=== PATIENT | male | born 1955 | race Caucasian/White ===

== ENCOUNTER 2020-07-09 07:59 | Day surgery (SDC) | payer MEDICARE, MEDICAID, SELFPAY ==
[2020-07-09 08:31] VITALS: BP 152/89; PULSE 63; RESP 18; TEMP 36.2; O2SAT 95
[2020-07-09] MEDS: Tropicam./Phenyleph. (1/2.5%) 5 ML BTL OD ×3 (08:38→08:48)
[2020-07-09] MEDS: Tetracaine 0.5% 4 ML BTL OD (09:42)
[2020-07-09] MEDS: Lidocaine 1% Pres-Free 5 ML VIAL (09:44)
[2020-07-09] MEDS: Balanced Salt Soln.-PLUS 500 ML BAG (09:44)
[2020-07-09] MEDS: Lidocaine 2% Jelly 6 ML SYR (09:45)
[2020-07-09] MEDS: Povidone-Iodine Ophth 30 ML BTL (09:46)
[2020-07-09] MEDS: Duovisc Viscoelastic System EACH 1 EACH (09:47)
--- NOTE | 2020-07-09 10:19 | W.PM.DSUDISC ---
Discharge Plan Disposition Patient Disposition: HOME Condition: Good Discharge Details Attending Provider: Gonzalo Ceballos Primary Care Provider: Bro Madrigal [place] Meds and New Rx's Prescriptions: No Action latanoprost 0.005 % drops 1 drp ophthalmic (eye) DAILY RF: 0 labetalol 200 mg tablet 400 mg PO TID RF: 0 chlorthalidone 25 mg tablet 25 mg PO BID RF: 0 allopurinol 100 mg tablet 200 mg PO DAILY RF: 0 aspirin 81 mg Tablet,Delayed Release (Dr/Ec) 81 mg PO DAILY RF: 0 clonidine HCl 0.2 mg tablet 0.2 mg PO DIRECTED RF: 0 diltiazem HCl [DILT-XR] 120 mg capsule,ext.rel 24h degradable 120 mg PO DAILY RF: 0 benazepril 40 mg tablet 40 mg PO DAILY RF: 0 tacrolimus 1 mg capsule 2 mg PO BID RF: 0 mycophenolate sodium 180 mg tablet,delayed release (DR/EC) 540 mg PO BID RF: 0 cholecalciferol (vitamin D3) 25 mcg (1,000 unit) tablet 1,000 unit PO DAILY RF: 0 Lantus Solostar U-100 Insulin 100 unit/mL (3 mL) insulin pen 90 unit SUBCUT HS RF: 0 Simbrinza 1-0.2 % drops,suspension 2 drp ophthalmic (eye) DAILY RF: 0 Gvoke HypoPen 1-Pack 1 mg/0.2 mL Auto-Injector 1 mg SUBCUT PRN PRNRF: 0 insulin aspart U-100 [Novolog Flexpen U-100 Insulin] 100 unit/mL (3 mL) insulin pen 32 unit SUBCUT BID RF: 0 Discharge Instructions Stand Alone Forms: Post-op Topical Cataract, Press Ganey (DSU) Discharge Orders Discharge Orders: Discharge Order (Routine); Ordered 07/09/20 Ordered By: Gonzalo Ceballos DS: Diagnosis Discharge Diagnosis (1) Primary open-angle glaucoma, right eye, moderate stage: Status: Chronic (2) Nuclear sclerotic cataract of right eye: Status: Chronic
--- NOTE | 2020-07-09 10:20 | ROE_ITS ---
Date of service: 07/09/20 Time of Service: 10:20 Operative Note Operative Note DATE OF PROCEDURE: 07/09/20 PRE-OP DIAGNOSIS: Nuclear cataract, right eye; Primary open-angle glaucoma, right eye, moderate stage POST-OP DIAGNOSIS: same PROCEDURE: Cataract extraction using phacoemulsification with intraocular lens implant, right eye SURGEON: Gonzalo Ceballos ANESTHESIA: MAC and local (sub-tenon's anesthetic infiltration) ESTIMATED BLOOD LOSS: 0 PATHOLOGY: none sent COMPLICATIONS: None Patient was transported to: same day Patient's condition: stable Implants: [employer] Vision / [employer] Tecnis ZCB00 intraocular lens Indications: Progressive decreased vision due to cataract, right eye Procedure Description: CATARACT SURGERY OPERATIVE REPORT PREOPERATIVE DIAGNOSIS: Nuclear cataract, right eye Primary open-angle glaucoma, right eye, moderate stage POSTOPERATIVE DIAGNOSIS: Same OPERATION: Cataract extraction using phacoemulsification with posterior chamber intraocular lens implant, right eye. IOL: IOL Manager Order/Model: [employer] Vision / KALEB Tecnis ZCB00 IOL Power: + 20.0 diopters IOL Serial Number: [id number] Optic Diameter: 6.0mm Haptic/Overall Diameter: 13.0mm PHACO INFO: Brendan [employer] Vision System with OZil and Active Fluidics Cumulative Dispersed Energy (CDE): 4.35 seconds SURGEON: Gonzalo Ceballos MD, JOSE MARTIN ANESTHESIA: Monitored Anesthesia Care (MAC), with local sub-tenon's anesthetic infiltration COMPLICATIONS: None SPECIMENS: None INDICATIONS FOR PROCEDURE: The patient is a 65-year-old gentleman with history of diminished visual acuity in his right eye. He is noted to have a moderate nuclear cataract. He has open-angle glaucoma, moderate stage. The option of cataract surgery was offered to the patient and he wished to proceed. PROCEDURE: The correct surgical eye was identified and marked as the right eye and the pupil was dilated in the preoperative area using mydriatics and cycloplegics. The dilated pupil size was 5.5 mm. Oral sedation was administered in the form of an Imprimis MKO Melt (midazolam 3mg/ketamine 25mg/ondansetron 2mg). The patient was brought to the operating room where cardiopulmonary monitoring was instituted and surgical time-out was performed, confirming the correct operative eye and IOL power. Topical anesthesia was administered and ophthalmic povidone-iodine 5% was instilled into the conjunctival fornices. Lidocaine gel was applied to the cornea and the kathe-ocular area was prepped with Betadine 10% solution and draped in the usual sterile fashion for intraocular surgery, including an aperture drape. A Tegaderm transparent film dressing was cut in half and used to cover the lashes and lid margins. Care was taken to sequester the lashes and lid margins under the Tegaderm dressing. A lid speculum was placed between the lids of the operative eye and the Amador-Heidy operating microscope was maneuvered into position. Andra scissors were then used to make a conjunctival buttonhole approximately 6mm posterior to the limbus in the inferonasal quadrant. Blunt dissection was carried out to expose bare sclera, and a blunt-tipped sub-tenon?s anesthesia cannula was introduced and passed posteriorly along the globe where non- preserved plain lidocaine was injected into posterior sub-Tenon?s space. A sideport knife was used to make a paracentesis port inferiortemporally. Intraocular phenylephrine/lidocaine was injected into the anterior chamber. The anterior chamber was then filled with viscoelastic. A 2.4mm keratome knife was used to create a half-thickness groove at the limbus and then to construct a three-plane near-clear corneal tunnel extending 1.5mm into clear cornea in the superiortemporal position. A flap was raised on the anterior capsule and capsulorhexis forceps were used to complete a continuous curvilinear capsulorhexis of 5.0 mm. Balanced salt solution was then used to perform cortical cleaving hydrodissection and nuclear hydrodelineation until the lens could be freely rotated within the capsular bag. During [place] dissection, iris prolapse was noted through the main wound. The anterior chamber was noted to be somewhat shallow with posterior pressure. Additional Viscoat was injected into the anterior chamber and the iris was reposited. The lens nucleus was then disassembled and removed within the capsular bag and iris plane using phacoemulsification. Residual cortical material was removed using the I/A handpiece. The posterior capsule was carefully polished to remove as much residual lens epithelial cells as safely possible. The capsular bag was then inflated and the anterior chamber deepened with viscoelastic. The lens implant described above was inserted into the capsular bag using the KALEB [place] Injector. A Kuglen hook was used to dial the IOL into position. The anterior chamber was slightly overfilled with viscoelastic. The patient's head and microscope were then tilted into the appropriate position for viewing of the anterior chamber angle. A surgical gonioprism was placed on the right eye. The trabecular meshwork could not be easily identified. The decision was made not to attempt implant iStent. Patient had and microscope were then returned to the appropriate coaxial position. Residual viscoelastic was then removed first from posterior to the IOL, then from the anterior chamber using the I/A handpiece. The lens implant was noted to center nicely within the capsular bag. The incisions were stromally hydrated, and the anterior chamber was reformed using BSS. Miostat was injected into the anterior chamber to constrict the pupil. Then 0.5cc of moxifloxacin 1.0mg/ml were injected into the capsular bag and anterior chamber. The incisions were checked with a Weck spear and found to be secure. Several drops of ophthalmic povidone-iodine 5% were then applied to the eye followed by two drops of Imprimis combination prednisolone/moxifloxacin/nepafenac solution. The drapes were removed and a clear plastic protective eye shield was placed over the eye. The patient was then returned to Same Day Surgery in stable condition.
[2020-07-09] MEDS: Acetaminophen 500 MG TAB 1000 MG PO (10:25)
== END 2020-07-09 10:35 | disposition home or self-care (01) ==
PROVIDERS: PCP Family Medicine; Visit Provider Ophthalmology
PROC: (CPT 0191T; principal; 2020-07-09 09:45)
DX: H25.11 Age-related nuclear cataract, right eye (principal); Z53.09 Procedure and treatment not carried out because of other contraindication; H40.1112 Primary open-angle glaucoma, right eye, moderate stage; E11.9 Type 2 diabetes mellitus without complications; I10 Essential (primary) hypertension; Z79.4 Long term (current) use of insulin
CPT/HCPCS: 0191T; V2632

== ENCOUNTER 2020-07-23 10:26 | Day surgery (SDC) | payer MEDICARE, MEDICAID, SELFPAY ==
[2020-07-23 10:36] VITALS: BP 153/72; PULSE 57; RESP 17; TEMP 36.2; O2SAT 97
[2020-07-23] MEDS: Tropicam./Phenyleph. (1/2.5%) 5 ML BTL OS ×3 (10:59→11:23)
[2020-07-23] MEDS: Tetracaine 0.5% 4 ML BTL OS (12:05)
[2020-07-23] MEDS: Lidocaine 2% Jelly 6 ML SYR (12:06)
[2020-07-23] MEDS: Povidone-Iodine Ophth 30 ML BTL ×2 (12:06→12:36)
[2020-07-23] MEDS: Balanced Salt Soln.-PLUS 500 ML BAG (12:13)
[2020-07-23] MEDS: Lidocaine 1% Pres-Free 5 ML VIAL (12:14)
[2020-07-23] MEDS: Duovisc Viscoelastic System EACH 1 EACH (12:15)
--- NOTE | 2020-07-23 12:42 | PDOC.DSDIS_ITS ---
Discharge Plan Disposition Patient Disposition: HOME Condition: Good Discharge Details Attending Provider: Gonzalo Ceballos Primary Care Provider: Bro Madrigal [place] Meds and New Rx's Prescriptions: No Action clonidine HCl [Catapres] 0.2 MG tablet 0.5 tab PO .8PM RF: 0 clonidine HCl [Catapres] 0.2 MG tablet 0.2 mg PO .8AM, .2PM RF: 0 magnesium oxide 400 MG tablet 400 mg PO BID RF: 0 simvastatin 20 MG tablet 20 mg PO DAILY RF: 0 benazepril [Lotensin] 40 MG tablet 40 mg PO DAILY RF: 0 tacrolimus [Prograf] 1 MG capsule 3 mg PO BID RF: 0 insulin aspart U-100 [Novolog PenFill U-100 Insulin] 100 UNIT/ML cartridge 38 unit Sub-Q .LUNCH, SUPPER RF: 0 mycophenolate sodium [Myfortic] 180 MG tablet,delayed release (DR/EC) 3 tab PO BID RF: 0 latanoprost 0.005 % drops 1 drp ophthalmic (eye) DAILY RF: 0 labetalol 200 mg tablet 400 mg PO TID RF: 0 chlorthalidone 25 mg tablet 25 mg PO BID RF: 0 allopurinol 100 mg tablet 200 mg PO TID RF: 0 aspirin 81 mg Tablet,Delayed Release (Dr/Ec) 81 mg PO DAILY RF: 0 diltiazem HCl [DILT-XR] 120 mg capsule,ext.rel 24h degradable 120 mg PO DAILY RF: 0 tacrolimus 1 mg capsule 2 mg PO BID RF: 0 mycophenolate sodium 180 mg tablet,delayed release (DR/EC) 540 mg PO BID RF: 0 cholecalciferol (vitamin D3) 25 mcg (1,000 unit) tablet 1,000 unit PO DAILY RF: 0 Lantus Solostar U-100 Insulin 100 unit/mL (3 mL) insulin pen 90 unit SUBCUT HS RF: 0 Simbrinza 1-0.2 % drops,suspension 2 drp ophthalmic (eye) DAILY RF: 0 Gvoke HypoPen 1-Pack 1 mg/0.2 mL Auto-Injector 1 mg SUBCUT PRN PRNRF: 0 insulin aspart U-100 [Novolog Flexpen U-100 Insulin] 100 unit/mL (3 mL) insulin pen 32 unit SUBCUT .BREAKFAST RF: 0 Discharge Instructions Stand Alone Forms: Post-op Topical Cataract, Press Ganey (DSU) Discharge Orders Discharge Orders: Discharge Order (Routine); Ordered 07/23/20 Ordered By: Gonzalo Ceballos DS: Diagnosis Discharge Diagnosis (1) Nuclear sclerotic cataract of left eye: Status: Resolved
--- NOTE | 2020-07-23 12:42 | W.PM.OP ---
Date of service: 07/23/20 Time of Service: 12:43 Operative Note Operative Note DATE OF PROCEDURE: 07/23/20 PRE-OP DIAGNOSIS: Nuclear cataract, left eye POST-OP DIAGNOSIS: same PROCEDURE: Cataract extraction using phacoemulsification with intraocular lens implant, left eye SURGEON: Gonzalo Ceballos ANESTHESIA: MAC and local (sub-tenon's anesthetic infiltration) PATHOLOGY: none sent COMPLICATIONS: None Patient was transported to: same day Patient's condition: stable Implants: [employer] Ton Vision / [employer] Tecnis ZCB00 Indications: Progressive decreased vision due to cataract, left eye Procedure Description: CATARACT SURGERY OPERATIVE REPORT PREOPERATIVE DIAGNOSIS: Nuclear cataract, left eye Primary open-angle glaucoma, left eye, mild stage POSTOPERATIVE DIAGNOSIS: Same OPERATION: Cataract extraction using phacoemulsification with posterior chamber intraocular lens implant, left eye. IOL: IOL Public Administration Professor/Model: J&J Vision / KALEB Tecnis ZCB00 IOL Power: + 22.0 diopters IOL Serial Number: [id number] Optic Diameter: 6.0mm Haptic/Overall Diameter: 13.0mm PHACO INFO: Brendan [employer] Vision System with OZil and Active Fluidics Cumulative Dispersed Energy (CDE): 6.0 seconds SURGEON: Gonzalo Ceballos MD, JOSE MARTIN ANESTHESIA: Monitored Anesthesia Care (MAC), with local sub-tenon's anesthetic infiltration COMPLICATIONS: None SPECIMENS: None INDICATIONS FOR PROCEDURE: The patient is a 65-year-old gentleman with history of open-angle glaucoma OU, right eye worse than left. He has developed significant bilateral nuclear cataracts. Glaucoma is controlled on 3 medications. He underwent cataract surgery in the right eye on 07/09/2020. He has a history of narrow angles and was previously undergone bilateral laser iridotomy. The operative plan for the right eye was for a glaucoma stent, but the view of the angle anatomy was unsuitable for implantation of a stent. He now presents for cataract surgery of the left eye. PROCEDURE: The correct surgical eye was identified and marked as the left eye and the pupil was dilated in the preoperative area using mydriatics and cycloplegics. The dilated pupil size was 6.0 mm. He desired to proceed without oral sedation.. The patient was brought to the operating room where cardiopulmonary monitoring was instituted and surgical time-out was performed, confirming the correct operative eye and IOL power. Topical anesthesia was administered and ophthalmic povidone-iodine 5% was instilled into the conjunctival fornices. Lidocaine gel was applied to the cornea and the kathe-ocular area was prepped with Betadine 10% solution and draped in the usual sterile fashion for intraocular surgery, including an aperture drape. A Tegaderm transparent film dressing was cut in half and used to cover the lashes and lid margins. Care was taken to sequester the lashes and lid margins under the Tegaderm dressing. A lid speculum was placed between the lids of the operative eye and the Amador-Heidy operating microscope was maneuvered into position. Andra scissors were then used to make a conjunctival buttonhole approximately 6mm posterior to the limbus in the inferonasal quadrant. Blunt dissection was carried out to expose bare sclera, and a blunt-tipped sub-tenon?s anesthesia cannula was introduced and passed posteriorly along the globe where non-preserved plain lidocaine was injected into posterior sub-Tenon?s space. A sideport knife was used to make a paracentesis port superior/superiortemporally. Intraocular phenylephrine/lidocaine was injected into the anterior chamber. The anterior chamber was then filled with Brendan Viscoat viscoelastic. A 2.4mm keratome knife was used to create a half-thickness groove at the limbus and then to construct a three-plane near-clear corneal tunnel extending 2.0mm into clear cornea in the temporal position. . A flap was raised on the anterior capsule and capsulorhexis forceps were used to complete a continuous curvilinear capsulorhexis of 5.0 mm. Balanced salt solution was then used to perform cortical cleaving hydrodissection and nuclear hydrodelineation until the lens could be freely rotated within the capsular bag. The lens nucleus was then disassembled and removed within the capsular bag and iris plane using phacoemulsification. Residual cortical material was removed using the 45-degree angled silicone I/A tip with 0.3mm port. The posterior capsule was carefully polished to remove as much residual lens epithelial cells as safely possible. The capsular bag was then inflated and the anterior chamber deepened with viscoelastic. The lens implant described above was inserted into the capsular bag using the KALEB [place] Injector. A Kuglen hook was used to dial the IOL into position. Residual viscoelastic was then removed first from posterior to the IOL, then from the anterior chamber using the I/A handpiece. The lens implant was noted to center nicely within the capsular bag. The incisions were stromally hydrated, and the anterior chamber was reformed using BSS. Then 0.1cc of moxifloxacin 5.0mg/ml were injected into the capsular bag and anterior chamber. The incisions were checked with a Weck spear and found to be secure. Several drops of ophthalmic povidone-iodine 5% were then applied to the eye followed by two drops of Imprimis combination prednisolone/moxifloxacin/nepafenac solution. The drapes were removed and a clear plastic protective eye shield was placed over the eye. The patient was then returned to Same Day Surgery in stable condition.
== END 2020-07-23 13:00 | disposition home or self-care (01) ==
PROVIDERS: PCP Family Medicine; Visit Provider Ophthalmology
PROC: (CPT 66984; principal; 2020-07-23 13:30)
DX: H25.12 Age-related nuclear cataract, left eye (principal); H40.1121 Primary open-angle glaucoma, left eye, mild stage
CPT/HCPCS: 66984; V2632